=== PATIENT | female | born 1950 | race Caucasian/White ===

== ENCOUNTER 2023-07-18 10:56 | Emergency (ER) | payer OTHER, MEDICARE, SELFPAY ==
[2023-07-18] VITALS (9 sets, daily range): BP systolic 105–144; BP diastolic 55–111; PULSE 72–75; BMI 29.5
--- NOTE | 2023-07-18 11:11 | ED.GENMED ---
History of Present Illness
General
Chief Complaint: Fainting/Passed Out
Source: family and ambulance crew
Time Seen by Provider: 07/18/23 11:00
Travel History
Have you had any contact with someone who has COVID-19?: No
Do you have any symptoms of coronavirus? Fever > 100 degrees, chills, cough, shortness of breath, sore throat, loss of taste or smell, muscle aches, or headache?: No
History of Present Illness
History of Present Illness:
9-year-old female with past medical history of hypertension and GERD presenting to the emergency department via EMS for evaluation after patient had a witnessed syncopal episode by family this morning the family kitchen table approximately 30
minutes prior to arrival to the emergency department. Daughter is providing the primary history and notes that since Wednesday night patient states she had been feeling unwell and has had some vomiting Wednesday night into Wednesday. Wednesday morning and
afternoon patient seemed fine and was able to eat dinner last night without any difficulty. Patient awoke this morning and was making the family breakfast and while they were sitting eating breakfast the daughter noticed the mother's eyes are
starting to roll back into her head and the patient noted she felt like as if she were going to throw up and upon trying to get up to help the mother towards the bathroom the patient syncopized. EMS was contacted and upon their arrival patient was
awake and alert however her blood pressure was 60/30. An IV was started and patient was given IV fluids. Patient still notes feeling slightly unwell but without any specific concern upon arrival to the emergency department. Patient is denying any
chest pain, shortness of breath, fevers, known sick contacts, bowel changes or urinary symptoms.
Past History
Past History
ED Past Medical History: GERD and HTN
ED Past Surgical History: None
Social History
Tobacco: Non-smoker
Alcohol: None
Drug: None
Living: with family
Review of Systems
Review of Systems
All Other Systems: ROS reviewed and negative except as documented in HPI and ROS
Phy Exam
Physical Exam
Physical Exam:
GENERAL: Sleepy but is easily arousable to voice, in no apparent distress
EYE: clear conjunctiva b/l
HEAD: NCAT
ENT: o/p clr, dry mucous membranes
CARDIAC: Regular rate and rhythm .
LUNGS: Clear breath sounds bilaterally, no acute respiratory distress, no wheezes/rales/rhonchi
ABDOMEN: Soft, without focal tenderness, no r/g, no cvat
NEUROLOGICAL: Alert and oriented
SKIN: Warm and dry, skin intact.
MUSCULOSKELETAL: No edema, well perfused.
PSYCH: Normal and appropriate interaction.
Scores
Heart Failure Risk
Heart Failure Risk Score: Not Applicable
Heart Score for Chest Pain Patients
STEMI patient?: Not applicable
Withdrawal Assessment of Alcohol
Withdrawal Assessment Completed?: Not applicable
Course
Orders/Labs/Results
Orders:
Orders
07/18/23 11:02
Electrocardiogram (*1) Urgent
Reason for Study: Syncope
EKG- Treatment ONCE
07/18/23 11:09
CT Cervical Spine W/o Iv Contr Urgent
Comment:
Reason For Exam: fall, neck pain
CT Head W/o Iv Contrast Urgent
Comment:
Reason For Exam: fall, head injury
Orthostatic VS- Treatment ONCE
COVID-19 Antigen Urgent
Source: Nasal Swab
Complete Blood Count/With Diff Urgent
Comprehensive Metabolic Panel Urgent
Troponin I Urgent
Influenza A+B Rapid Molecular Urgent
JONEL Source: Nasal Swab
Specimen Description:
07/18/23 12:40
0.9% Sodium Chloride 1000 ml [Nss] 1,000 ml IV BOLUS
07/18/23 13:33
Orthostatic VS- Treatment ONCE
Abnormal Lab Results
07/18/23
11:09
WBC 11.6 H 10^3/uL
(4.8-10.8)
RBC 3.82 L 10^6/uL
(4.20-5.40)
Hgb 11.7 L g/dL
(12.0-16.0)
Hct 34.6 L %
(37.0-47.0)
MPV 11.0 H fL
(7.4-10.4)
Abs Immat Gran (auto) 0.1 H 10^3/uL
(0-0.05)
Absolute Neuts (auto) 8.6 H 10^3/uL
(1.4-6.5)
Absolute Monos (auto) 1.2 H 10^3/uL
(0.1-0.6)
Lymphocytes % 13.9 L %
(20.5-51.1)
Monocytes % 10.2 H %
(1.7-9.3)
Potassium 3.4 L mmol/L
(3.5-5.1)
Glucose 143 H mg/dl
(70-99)
07/18/23 11:09
07/18/23 11:09
Vital Signs
Initial and Last Documented VS:
Initial Vital Signs
Temp Pulse Resp BP Pulse Ox
98.6 F 71 19 125/61 95
07/18/23 11:02 07/18/23 11:02 07/18/23 11:02 07/18/23 11:02 07/18/23 11:02
Last Documented Vital Signs
Temp Pulse Resp BP Pulse Ox
98.6 F 78 16 131/111 97
07/18/23 11:02 07/18/23 14:30 07/18/23 14:30 07/18/23 14:00 07/18/23 14:30
MDM/Problems Addressed
Differential Diagnosis Includes:
Orthostasis, dehydration, electrolyte disturbance, infectious etiology
MDM/Problems Addressed:
72-year-old female present emergency department for evaluation after witnessed syncopal episode this morning, EMS on arrival noticed her blood pressure was 60/30. I suspect orthostasis secondary to volume depletion as patient has had some nausea
and vomiting and decreased p.o. intake over the last 2 days. Will treat with continued IV fluids. Vital signs are much improved here. Will check CT of the head and C-spine due to the reported fall today as well as headache over the last few days.
Labs ordered. Reassessment following.
*Radiology
Radiology exam reviewed: radiology read reviewed
*Pulse Oximetry
Patient hypoxic: no
*Critical Care Note
Total Time (30-74mins, 75-104mins- exclusive of procedures): Not Applicable
Patient Management
Escalation/DeEscalation of care consider admission/obs:
Patient's workup is largely unremarkable. She does have a mild leukocytosis which could be reactive from the vomiting she had versus a viral infection. Patient's symptoms are fully resolved. Orthostatic vital signs without any significant
abnormality and patient feels well to be discharged home. Family will ensure close follow-up with primary care provider. Patient is otherwise stable for discharge home.
ED Attending Note
-
Portions of this chart may have been created with voice recognition software.� Occasional wrong word or��sound alike� substitutions may have occurred due to the inherent limitations of voice recognition software.
Discharge Plan
Departure
Patient Disposition: Home (Routine Discharge)
Date of Disposition: 07/18/23
Time of Disposition: 14:40
Patient with high blood pressure during this ER visit?: Yes
Discharge Problem:
Orthostasis
Instructions: Syncope (Fainting) (DC)
Referrals:
Augusta Young, [Family Provider] -
Interventions
Interventions:
*Risk Screen - Suicide Last Done: 07/18/23 11:03
*General Assessment Last Done: 07/18/23 11:03
*Neglect/Abuse Screening Last Done: 07/18/23 11:03
ED- Fall Risk Assessment Last Done: 07/18/23 11:07
*ED COVID-19 Vaccine History Last Done: 07/18/23 14:24
*Nursing Disposition Last Done: 07/18/23 14:53
ED- Cardiac Assessment Last Done: 07/18/23 11:07
ED- Neurological Assessment Last Done: 07/18/23 11:07
Discharge Date and Time
Discharge Date/Time: 07/18/23 14:53
[2023-07-18 11:21] LABS: % Basophils 0.3 % (0-2); % Eosinophils 0.5 % (0-6); % Immature Granulocytes 0.4 % (0-0.5); % Lymphocytes 13.9 % (20.5-51.1); % Monocytes 10.2 % (1.7-9.3); % Neutrophils 74.7 % (42.2-75.2); Absolute Eosinophils 0.1 10^3/uL (0-0.7); Absolute Immature Granulocytes 0.1 10^3/uL (0-0.05); Absolute Lymphocytes 1.6 10^3/uL (1.2-3.4); Absolute Monocytes 1.2 10^3/uL (0.1-0.6); Absolute Neutrophils 8.6 10^3/uL (1.4-6.5); Hematocrit 34.6 % (37.0-47.0); Hemoglobin 11.7 g/dL (12.0-16.0); Mean Corp Hgb Conc. 33.8 g/dL (33.0-37.0); Mean Corpuscular Hgb 30.6 pg (27.0-31.0); Mean Corpuscular Volume 90.6 fL (81.0-99.0); Nucleated Red Blood Cells % 0 %; Platelet Count 192 10^3/uL (130-400); Red Blood Cell Count 3.82 10^6/uL (4.20-5.40); Red Cell Dist. Width 12.8 % (11.5-14.5); White Blood Cell Count 11.6 10^3/uL (4.8-10.8)
[2023-07-18 11:30] LABS: COVID-19 Antigen Negative (Negative)
[2023-07-18 11:32] LABS: ALT (SGPT) 20 U/L (0-35); AST (SGOT) 25 U/L (14-36); Albumin 3.9 g/dl (3.5-5.0); Alkaline Phosphatase 60 U/L (38-126); Blood Urea Nitrogen 17 mg/dl (7-17); Calcium 8.8 mg/dl (8.4-10.2); Carbon Dioxide 22 mmol/L (22-30); Chloride 104 mmol/L (98-107); Estimated Creatinine Clearance 67 ml/min; Glucose 143 mg/dl (70-99); Potassium 3.4 mmol/L (3.5-5.1); Sodium 138 mmol/L (135-145); Total Bilirubin 0.7 mg/dl (0.2-1.3); Total Protein 7.1 g/dl (6.3-8.2); eGFR > 60.00
[2023-07-18 11:44] LABS: Troponin I < 0.012 ng/ml
[2023-07-18] MEDS: NSS 1000 IV (12:58)
== END 2023-07-18 14:53 | disposition home or self-care (01) ==
LOC: EMR 10:56
PROVIDERS: Physician Assistant Medical; EMERGENCY PHYSICIAN Student in an Organized Health Care Education/Training Program; FAMILY PHYSICIAN Family Medicine
DX: I95.1 Orthostatic hypotension (principal); K21.9 Gastro-esophageal reflux disease without esophagitis
CPT/HCPCS: 99285; 96360; 70450; 72125; 80053; 84484; 85025; 87502; 87811; 93005

== ENCOUNTER 2024-02-01 13:42 | Inpatient (IN) | payer MEDICARE, OTHER, SELFPAY ==
[2024-02-01] VITALS (7 sets, daily range): BP systolic 108–162; BP diastolic 52–89; BMI 32.3
[2024-02-01 08:34] LABS: Glucose - Point of Care 102 mg/dl (70-99)
[2024-02-01 08:41] LABS: % Basophils 0.7 % (0-2); % Eosinophils 2.6 % (0-6); % Immature Granulocytes 0.3 % (0-0.5); % Lymphocytes 43.9 % (20.5-51.1); % Monocytes 10.9 % (1.7-9.3); % Neutrophils 41.6 % (42.2-75.2); Absolute Basophils 0.1 10^3/uL (0-0.2); Absolute Eosinophils 0.2 10^3/uL (0-0.7); Absolute Monocytes 0.8 10^3/uL (0.1-0.6); Absolute Neutrophils 2.8 10^3/uL (1.4-6.5); Hematocrit 33.3 % (37.0-47.0); Hemoglobin 11.3 g/dL (12.0-16.0); Mean Corp Hgb Conc. 33.9 g/dL (33.0-37.0); Mean Corpuscular Hgb 30.5 pg (27.0-31.0); Mean Platelet Volume 10.9 fL (7.4-10.4); Nucleated Red Blood Cells % 0 %; Platelet Count 228 10^3/uL (130-400); Red Cell Dist. Width 12.9 % (11.5-14.5); White Blood Cell Count 6.9 10^3/uL (4.8-10.8)
--- NOTE | 2024-02-01 08:47 | ED.CVA ---
History of Present Illness
General
Chief Complaint: CVA/TIA Symptoms
Source: patient, family and ambulance crew
Exam Limitations: none
Time Seen by Provider: 02/01/24 08:33
Nursing documentation reviewed up to this point in time: agreed with
Onset of Stroke Symptoms
Onset of symptoms known: Yes
Date of onset of symptoms: 02/01/24
Time of onset of symptoms: 07:00
Time pt last seen normal is known: Yes
Date last time pt seen normal: 01/31/24
History of Present Illness
History of Present Illness:
73-year-old female presents to the emergency department complaining of slurred speech and left-sided weakness that began at 7 am. She was last seen normal at 10:30 PM last night.
Past History
Past History
ED Past Medical History: GERD and HTN
ED Past Surgical History: None
Social History
Tobacco: Non-smoker
Alcohol: None
Drug: None
Living: with family
Scores
NIH Stroke Score
Level of Consciousness: 0 - Alert
LOC Commands: 0-Performs both correctly
Best Horizontal Gaze: 0-Normal
Visual Rowe: 0=Normal, no visual loss
Facial Palsy: 0=Normal, symmetrical
Motor - Right Arm: 0=No drift 10 seconds
Motor - Left Arm: 1=Drift < 10 seconds
Motor - Right Le-No drift 5 seconds
Motor - Left Le-Partial vs. gravity
Limb Ataxia: 0-Absent
Sensation: 0-Normal
Best Language: 0-No aphasia
Extinction and Inattention: 0-No abnormality
Course
Orders/Labs/Results
Orders:
Orders
02/01/24 08:31
Electrocardiogram (*1) Urgent
Reason for Study: Other
Other Reason for Exam: Possible Stroke
Bedside Glucose- Treatment ONCE
Cardiac Monitoring- Treatment ONCE
EKG- Treatment ONCE
IV Insert/Care/Rem.- Treatment PRN
Vital Signs As Directed
Frequency: Other
Weight As Directed
Frequency: Once
Comment: ZERO STRETCHER SCALE FOR ACCURATE WEIGHT
O2 Therapy [RESP] Urgent
Titrate/Wean O2 to maintain O2 sat greater than (%): 93
Special Instructions: MAINTAIN CONTINUOUS O2 SATS > OR = 93%
02/01/24 08:33
CT Head W/o Cont STROKE ALERT Urgent
Comment:
Reason For Exam: left side weakness
CT Head/Neck Ang STROKE ALERT Urgent
Comment:
Reason For Exam: left side weakness
02/01/24 08:34
CT Brain Perfusion Urgent
Comment:
Reason For Exam: left side weakness
Complete Blood Count/With Diff Urgent
Comprehensive Metabolic Panel Urgent
PTT Urgent
Prothrombin Time Urgent
Troponin I Urgent
Abnormal Lab Results
02/01/24 02/01/24
08:32 08:34
RBC 3.70 L 10^6/uL
(4.20-5.40)
Hgb 11.3 L g/dL
(12.0-16.0)
Hct 33.3 L %
(37.0-47.0)
MPV 10.9 H fL
(7.4-10.4)
Absolute Monos (auto) 0.8 H 10^3/uL
(0.1-0.6)
Neutrophils % 41.6 L %
(42.2-75.2)
Monocytes % 10.9 H %
(1.7-9.3)
POC Glucose 102 H mg/dl
(70-99)
02/01/24 08:34
ED Attending Note
-
Portions of this chart may have been created with voice recognition software.� Occasional wrong word or��sound alike� substitutions may have occurred due to the inherent limitations of voice recognition software.
Discharge Plan
Departure
Discharge Problem:
Acute cerebrovascular accident (CVA)
Prescriptions:
No Action
losartan 50 mg Tablet
50 mg PO BID
atorvastatin [Lipitor] 10 mg Tablet
10 mg PO DAILY
alendronate [Fosamax] 70 mg Tablet
70 mg PO QWEEK
furosemide [Lasix] 20 mg Tablet
20 mg PO DAILY
diclofenac sodium [Voltaren] 1 % Gel
0 g TOPICAL QIDPRN PRN (Reason: mild pain)
cholecalciferol (vitamin D3) [Vitamin D3] 125 mcg (5,000 unit) Tablet
125 mcg PO DAILY
diphenhydramine HCl [Sleep Aid (diphenhydramine)] 25 mg Capsule
25 mg PO HSPRN PRN (Reason: sleep)
omega 8-xzl-nzp-fish oil [Fish Oil] 1,000 (120-180) mg Capsule
1 cap PO DAILY
turmeric 400 mg Capsule
400 mg PO DAILY
Discharge Date and Time
Print Language: PASHTO
[2024-02-01 08:53] LABS: ALT (SGPT) 30 U/L (0-35); AST (SGOT) 27 U/L (14-36); Albumin 4.8 g/dl (3.5-5.0); Alkaline Phosphatase 60 U/L (38-126); Blood Urea Nitrogen 29 mg/dl (7-17); Calcium 9.8 mg/dl (8.4-10.2); Carbon Dioxide 25 mmol/L (22-30); Chloride 106 mmol/L (98-107); Glucose 103 mg/dl (70-99); Potassium 4.3 mmol/L (3.5-5.1); Sodium 144 mmol/L (135-145); Total Bilirubin 0.5 mg/dl (0.2-1.3); Total Protein 7.3 g/dl (6.3-8.2); eGFR > 60.00
[2024-02-01 08:58] LABS: INR 1.09
[2024-02-01 08:59] LABS: APTT 28.5 Sec (23.4-35.0)
[2024-02-01 09:05] LABS: Troponin I < 0.012 ng/ml
--- NOTE | 2024-02-01 09:49 | CON.NEURO4 ---
Consultation - Neurology 4
-
CONSULTING PHYSICIAN: Rohan
REFERRING PHYSICIAN: Joe
DICTATED BY: Rohan
DATE/TIME OF REQUEST: 822 am 02/01/24
DATE/TIME OF CONSULTATION: 830am 02/01/24
Reason for Consultation: stroke alert
History of Present Illness:
73-year-old female presents to the emergency department with aphasia, dysarthria and left-sided weakness that she noticed at 7 am. She was last seen normal at 10:30 PM last night before going to bed. Told her daughter that she experienced 'L sided
numbness, tingling' and 'her speech was slow, didn't make sense, she told me she was having a stroke, voice was mumbled.' She was trying to hold on to cordon while walking. Her 'face looked off' as well.
In the ER she was noted to have severe L hip pain. Aphasia and LUE drift resolved. Dysarthria persisted. Speech was still slow per her daughter.
Past Medical History: GERD and HTN
Past Surgical History: None
Social History
Tobacco: Non-smoker
Alcohol: None
Drug: None
Living: with who has AD
Home Medications
�Medication �Instructions �Recorded
alendronate 70 mg tablet (Fosamax) 70 mg PO QWEEK osteoporosis 02/01/24
aspirin 81 mg tablet,delayed 81 mg PO DAILYPRN PRN stroke like 02/01/24
release symptoms
atorvastatin 10 mg tablet (Lipitor) 10 mg PO DAILY high cholesterol 02/01/24
cholecalciferol (vitamin D3) 125 125 mcg PO DAILY supplement 02/01/24
mcg (5,000 unit) tablet (Vitamin
D3)
diclofenac sodium 1 % topical gel 0 g topical QIDPRN PRN mild pain 02/01/24
diphenhydramine HCl 25 mg capsule 25 mg PO HSPRN PRN sleep 02/01/24
(Sleep Aid (diphenhydramine))
furosemide 20 mg tablet (Lasix) 20 mg PO DAILY Fluid 02/01/24
Retention/Swelling
losartan 50 mg tablet 50 mg PO BID blood pressure 02/01/24
omega 1-jjv-pqs-fish oil 1,000 mg 1 cap PO DAILY supplement 02/01/24
(120 mg-180 mg) capsule (Fish Oil)
turmeric 400 mg capsule 400 mg PO DAILY supplement 02/01/24
Vital Signs
Pulse Resp BP Pulse Ox
73 24 162/71 94
02/01/24 09:30 02/01/24 09:30 02/01/24 08:34 02/01/24 09:30
Lab Results
02/01/24 08:34
02/01/24 08:34
PT 14.0 Sec (11.4-14.6) 02/01/24 08:34
INR 1.09 02/01/24 08:34
APTT 28.5 Sec (23.4-35.0) 02/01/24 08:34
Sodium 144 mmol/L (135-145) 02/01/24 08:34
Potassium 4.3 mmol/L (3.5-5.1) 02/01/24 08:34
BUN 29 mg/dl (7-17) H 02/01/24 08:34
Glucose 103 mg/dl (70-99) H 02/01/24 08:34
Calcium 9.8 mg/dl (8.4-10.2) 02/01/24 08:34
Review of Symptoms:
Patient denies any fever, headache, chest pain, shortness of breath, GI or symptoms.
Physical Exam:
The patient is afebrile, heart sounds S1 and S2 are regular and chest is clear to auscultation bilaterally.
Neurologic Examination:
The patient is awake, alert and oriented x 3. She is able to follow commands and answer questions appropriately in her [place] language in conversation with her daughter; daughter reports some mild dysarthria; no aphasia; able to read sentences in
Thai. Does not speak [place]. On cranial nerve assessment, pupils are 3 mm bilateral, round and reactive to light and accommodation. Visual rowe are full. Extraocular movements are intact. Facial sensations are intact and bilaterally
symmetrical, there is no facial asymmetry. Hearing is intact bilaterally to normal conversation volume. Tongue palate and uvula are midline. Sternocleidomastoid strengths are full bilaterally. Motor strengths: drift in LUE (later resolved on repeat
exam per Dr. Diaz); LLE limited by severe hip pain--at least 3/5. R side full strength. Deep tendon reflexes are 1+ bilateral upper and lower extremities and Babinski is absent bilaterally. Sensations of touch, temperature are intact and
bilaterally symmetrical. There was no extinction noted on double simultaneous stimulation. Coordination is intact by finger to nose bilaterally.
Neuro Imaging:
HCT: no acute findings
CTP: negative per my read; await official read from radiology
CTA head/neck:
IMPRESSION: No significant proximal intracranial arterial abnormality.
No demonstrable internal carotid artery stenosis.
No findings to suggest internal carotid artery or vertebral artery dissection bilaterally.
Impression:
DOUG PILLAI is a 73 year old F who has presented to the hospital with L sided weakness with dysarthria and aphasia. Aphasia and LUE drift also resolved. Still had LLE weakness (but significant effect from hip pain likely playing a role) and
dysarthria.
Differentials for the patient's presentation include:
1. small R hemispheric stroke no visible on HCT or CTP
2. toxic-metabolic encephalopathy (although does not account for LUE drift) of unclear etiology; in a lot of pain, currently requiring oxygen
Patient has the following risk factors for their symptoms: age, htn
IV Tenecteplase/IAT candidacy: not a TNK candidate given out of traditional window, symptoms improving and when reassessed NIHSS was down to a 3 with points given for mild dysarthria (1) and LLE weakness (2), although how much of the latter was due
to pain is unclear
No LVO for IAT.
Recommendations:
-check MRI brain without contrast to evaluate for stroke
-CTA results reviewed
-permissive htn for first 24 hours, treat >220/110
-give extra ASA for a total of 325; given plavix 75mg as well; start ASA 81mg daily and Plavix 75mg daily tomorrow and continues x 21 days, then d/c Plavix.
- Check hemoglobin A1C. Goal is normoglycemia.
- Please start the patient on atorvastatin 80 mg by mouth daily at bedtime. Check LDL. Goal LDL after stroke is <70.
- Check an echocardiogram.
-PT/OT/ST evaluations
- DVT prophylaxis
-continue neurochecks
-workup for hypoxia, L hip pain per primary team
Critical care time 70 mins
Discussed patient care with: patient, patient's daughter, Dr. Diaz, radiology
NIH Stroke Scale
NIH Stroke Score
Date of Subsequent NIH Scale: 02/01/24
Time of Subsequent NIH Scale: 08:30
Level of Consciousness: 0 - Alert
LOC Questions: 0-Answers both correctly
LOC Commands: 0-Performs both correctly
Best Horizontal Gaze: 0-Normal
Visual Rowe: 0=Normal, no visual loss
Facial Palsy: 0=Normal, symmetrical
Motor - Right Arm: 0=No drift 10 seconds
Motor - Left Arm: 1=Drift < 10 seconds
Motor - Right Le-No drift 5 seconds
Motor - Left Le-Partial vs. gravity
Limb Ataxia: 0-Absent
Sensation: 0-Normal
Best Language: 0-No aphasia
Dysarthria: 1-Mild slurring
Extinction and Inattention: 0-No abnormality
Total Score:: 4
[2024-02-01] MEDS: ASPIRIN 325 MG PO (10:32)
[2024-02-01] MEDS: PLAVIX 75 MG PO (10:32)
[2024-02-01 14:17] LABS: HDL Cholesterol 60 mg/dl; LDL Cholesterol, Calculated 66 mg/dl; Total Cholesterol 146 mg/dl (50-199); Triglyceride 104 mg/dl (10-149); Very Low Density Lipoprotein 20 mg/dl (0-30)
[2024-02-01] MEDS: LIPITOR 80 MG PO (17:56)
[2024-02-01 19:13] LABS: ALT (SGPT) 29 U/L (0-35); AST (SGOT) 26 U/L (14-36); Albumin 4.6 g/dl (3.5-5.0); Alkaline Phosphatase 65 U/L (38-126); Blood Urea Nitrogen 19 mg/dl (7-17); Calcium 9.7 mg/dl (8.4-10.2); Carbon Dioxide 23 mmol/L (22-30); Chloride 106 mmol/L (98-107); Estimated Creatinine Clearance 72 ml/min; Glucose 97 mg/dl (70-99); Potassium 4.1 mmol/L (3.5-5.1); Sodium 143 mmol/L (135-145); Total Bilirubin 0.5 mg/dl (0.2-1.3); Total Protein 7.4 g/dl (6.3-8.2); eGFR > 60.00
--- NOTE | 2024-02-01 19:49 | HPS.HSE ---
Addendum entered and electronically signed by Nusrat Garcia MD 02/01/24 21:18:
I personally performed a history and physical exam of the patient and discussed management with the resident. I reviewed the resident's note and agree with the documented findings and plan of care HPI/CC.
GENERAL: well developed, well nourished, female in no apparent distress--speaks Czech (daughter translating)--looks 'pained' frowning
HEENT: NC/AT--subtle facial droop
HEART: regular rate and rhythm, +S1, +S2
LUNGS : clear to auscultation bilaterally
ABDOM: soft, nontender, nondistended, + bowel sounds
EXT: no cyanosis, clubbing, or edema--left leg shorter than right
NEUROLOGIC: weakness left arm and leg, subtle facial droop
TIA vs CVA--presenting as weakness/dysarthria--head CT, head and neck CTA negative--consult neuro--check MRI brain, lipids, PT/OT/speech, ECHO--cont asa/plavix for 21 days followed likely by plavix as she had been on ASA MOVER--high intensity
statin--IF MRI positive, would consult PM&R for rehab eval
Essential Hypertension--allow permissive HTN--cont meds with hold parameters
Hyperlipidemia-- check lipids, cont statin
DVT proph
code status--limited DNR
Original Note:
Family Physician
-
Family Physician: NOT KNOW UNKNOWN - PT DOES
Chief Complaint
-
weakness in the left arm, not comprehensible when talking to daughter
History of Present Illness
A 73 year old female with a past medical history of GERD, rheumatoid arthritis, HTN, HLD, and osteoprosis comes to the ED with weakness of the left arm and dysarthria. She does not speak Maori and her daughter is bedside who is translating. She
was going to the bathroom in the morning when all of a sudden she started feeling left arm weakness. She was calling out to her grandson and could not form the words to call out his name. She then took her blood pressure and found that it was high.
She took a losartan but it did not help the weakness. Her daughter came home to find her clinging to the couch trying to pull herself up. The daughter was not able to understand what she was trying to say. and noticed she kept complaining about her
left arm and leg. she then called 911. She was also advised to give the patient aspirin which she did. Patient was then transported to the hospital in ambulance and admitted. She reports no vomiting, no nausea, no chest pain, no dizziness, no
headache.
Medical History
Past Medical History
Past Medical History: Reports GERD, HTN and Hypercholesterolemia
Additional Past Medical History:
Rheumatoid arthritis
osteoporosis
Past Surgical History: Reports None
Social History
Tobacco: Non-smoker
Alcohol: None
Drug: None
Personal:
Living: With Family
Employment: Not Employed
Family History
Family History: Not pertinent
Allergies / Home Medications
Allergies reflects when Allergies were last updated in [employer].
Home Medications with original date entered in [employer]
Allergy/Medication List:
Allergies
Allergy/AdvReac Type Severity Reaction Status Date / Time
No Known Allergies Allergy Unverified 07/18/23 11:03
Home Medications
acetaminophen 500 mg tablet 1,000 mg PO Q6H PRN joint pain 02/01/24
alendronate 70 mg tablet (Fosamax) 70 mg PO QWEEK osteoporosis 02/01/24
atorvastatin 10 mg tablet (Lipitor) 10 mg PO DAILY high cholesterol 02/01/24
cholecalciferol (vitamin D3) 125 mcg (5,000 unit) tablet (Vitamin D3) 125 mcg PO DAILY supplement 02/01/24
diclofenac sodium 1 % topical gel 0 g topical QIDPRN PRN mild pain 02/01/24
diphenhydramine HCl 25 mg capsule (Sleep Aid (diphenhydramine)) 25 mg PO HSPRN PRN sleep 02/01/24
furosemide 20 mg tablet (Lasix) 20 mg PO DAILY Fluid Retention/Swelling 02/01/24
ibuprofen 600 mg tablet 600 mg PO Q6H PRN joint pain 02/01/24
losartan 50 mg tablet 50 mg PO BID blood pressure 02/01/24
omega 8-pmh-scl-fish oil 1,000 mg (120 mg-180 mg) capsule (Fish Oil) 1 cap PO DAILY supplement 02/01/24
omeprazole 20 mg capsule,delayed release 20 mg PO BID 02/01/24
turmeric 400 mg capsule 400 mg PO DAILY supplement 02/01/24
Review of Systems
-
History Source: Patient
Neurological: Reports Weakness (in the left arm and leg )
Physical Exam
Vital Signs
Vital Signs
Temp Pulse Resp BP Pulse Ox
97.9 F 58 18 135/69 95
02/01/24 15:35 02/01/24 15:35 02/01/24 15:35 02/01/24 15:35 02/01/24 15:35
Physical Exam
General: Well Developed and Well Nourished
HEENT: NormoCephalic and Anicteric
Respiratory: Clear
Cardiac: Regular Rhythm
GI: Soft, Non Tender and Non Distended
Musculoskeletal: No Clubbing and No Cyanosis
Skin: Warm and Dry
Neuro: Awake, Alert and Oriented
Psych: Confused
Laboratory Results
-
02/01/24 08:34
02/01/24 18:23
Laboratory Results
PT 14.0 Sec (11.4-14.6) 02/01/24 08:34
INR 1.09 02/01/24 08:34
APTT 28.5 Sec (23.4-35.0) 02/01/24 08:34
Total Bilirubin 0.5 mg/dl (0.2-1.3) 02/01/24 18:23
AST 26 U/L (14-36) 02/01/24 18:23
ALT 29 U/L (0-35) 02/01/24 18:23
Alkaline Phosphatase 65 U/L (38-126) 02/01/24 18:23
Troponin I < 0.012 ng/ml 02/01/24 08:34
Data Reviewed
-
Lab Data: Labs Reviewed by me and Discussed with Physician
Impression/Plan
-
IMPRESSION:
TIA vs CVA
Essential Hypertension
Hyperlipidemia
PLAN:
1. TIA vs CVA
- Consulted neurology (01/31)
- Aspirin/ Plavix ordered
- MRI ordered (01/31)
- MRA ordered (01/31)
- PT/OT ordered
- Speech therapy consulted
- Bedside swallowing evaluation- passed so cholesterol lowering diet ordered
- Lipid panel ordered (01/31)
- Echocardiogram ordered (01/31)
2. Essential hypertension:
- 162/71 (01/30)
- For now continue on current HTN medication regime, allow permissive HTN
3. Hyperlipidemia:
- Currently switched her atorvastatin to 80 mg from 10 mg
[2024-02-01] MEDS: COZAAR 50 MG PO (19:52)
[2024-02-01] MEDS: PROTONIX 20 MG PO (20:36)
[2024-02-02 03:30] VITALS: BP 104/56
[2024-02-02 07:36] VITALS: BP 139/66
[2024-02-02 07:51] LABS: INR 1.11; PT 14.1 Sec (11.4-14.6)
[2024-02-02 08:03] LABS: Hematocrit 31.4 % (37.0-47.0); Hemoglobin 10.8 g/dL (12.0-16.0); Mean Corp Hgb Conc. 34.4 g/dL (33.0-37.0); Mean Corpuscular Hgb 31.7 pg (27.0-31.0); Mean Corpuscular Volume 92.1 fL (81.0-99.0); Mean Platelet Volume 11.4 fL (7.4-10.4); Platelet Count 212 10^3/uL (130-400); Red Blood Cell Count 3.41 10^6/uL (4.20-5.40); Red Cell Dist. Width 12.9 % (11.5-14.5); White Blood Cell Count 6.3 10^3/uL (4.8-10.8)
[2024-02-02] MEDS: COZAAR 50 MG PO (09:17)
[2024-02-02] MEDS: ASPIR LOW (ENTERIC COATED) 81 MG PO (09:18)
[2024-02-02] MEDS: PROTONIX 20 MG PO (09:18)
[2024-02-02] MEDS: VITAMIN D3 (cholecalciferol) 125 MCG PO (09:19)
[2024-02-02] MEDS: PLAVIX 75 MG PO (09:19)
[2024-02-02 09:27] LABS: Glycohemoglobin (HgbA1c) 5.5 % (4.0-5.6)
[2024-02-02 09:34] VITALS: BP 139/66; PULSE 57; O2SAT 97
[2024-02-02 11:17] VITALS: BP 131/70
--- NOTE | 2024-02-02 12:30 | PTOTSP ---
ANSWERING SERVICE AGENT Evaluation
Speech/language is at baseline per discussion with patient's caregiver/daughter, without significant signs of dysarthria or aphasia. Changes to short term delayed recall noted which was present prior to admission per daughter. Patient is fully
assisted/supervised with higher level cognitive tasks at baseline per daughter. Patient would benefit from a comprehensive outpatient cognitive linguistic evaluation with a bilingual ANSWERING SERVICE AGENT and/or with use of an [place] fur storage clerk as
able/appropriate.
[2024-02-02] MEDS: DICLOFENAC 1% TOPICAL GEL 100 GRAM TOPICAL (13:19)
--- NOTE | 2024-02-02 14:48 | CM ---
Patient seen bedside.
IA completed with daughter in the room.
Patient lives with daughters family in a 2 story home, with 1st floor set up.
Patient ambulates with RW when outside.
Patient does not drive.
Patient does not have VN.
PT/OT recommending home care, patient and daughter declined.
Daughter is caregiver and assists.
IMM form completed.
Daughter will transport.
PCP: Dr Anastasiya Quiroz
Pharmacy: [facility].
Plan: home no needs anticipated.
--- NOTE | 2024-02-02 14:56 | W.PN.NEURO.1 ---
Today's Communication / Plan
-
ok for d/c
continue dapt, statin
f/u in office
Neuro Assessment/Plan
Assessment
DOUG PILLAI is a 73 year old F who has presented to the hospital with L sided weakness with dysarthria and aphasia. Aphasia and LUE drift also resolved. Still had LLE weakness (but significant effect from hip pain likely playing a role) and
dysarthria.
MRI brain confirmed stroke:
There are 2 small foci of mild to moderate increased diffusion-weighted signal and subtle increased ADC signal in the right hemisphere, one more medially at the frontoparietal junction, and a second more laterally within the anterior margin of the
postcentral gyrus. These are slightly less intense than sometimes seen, but are still suspicious for small foci of acute to subacute infarction.
Mild to moderate atrophy. Mild to moderate T2 and FLAIR white matter hyperintensities, commonly seen with aging and usually attributed to small vessel ischemic disease.
Patient has the following risk factors for their symptoms: age, htn
IV Tenecteplase/IAT candidacy: not a TNK candidate given out of traditional window, symptoms improving and when reassessed NIHSS was down to a 3 with points given for mild dysarthria (1) and LLE weakness (2), although how much of the latter was due
to pain is unclear
No LVO for IAT.
Plan
Recommendations:
-CTA results reviewed, reviewed mri brain
-bp goal normotension
-continue ASA 81mg daily and Plavix 75mg daily x 21 days, then d/c Plavix. continue asa indefinitely; reviewed with dtr.
- Hemoglobin A1C is 5.5. Goal is normoglycemia.
- Please start the patient on atorvastatin 80 mg by mouth daily at bedtime. LDL is 66. Goal LDL after stroke is <70.
-echo--no cse
-PT/OT/ST evaluations
- DVT prophylaxis
-continue neurochecks
ok for d/c from my standpt
needs op f/u with neurology in 1-2 mos
Subjective/Objective
Subjective Data
Date of Service: February 02, 2024
speech improved, even compared to last night per daughter
facial weakness also improved
Objective Data
Vital Signs
Temp Pulse Resp BP Pulse Ox
98.3 F 64 17 131/70 95
02/02/24 11:17 02/02/24 11:17 02/02/24 11:17 02/02/24 11:17 02/02/24 11:17
Lab Results
02/02/24 07:12
02/01/24 18:23
PT 14.1 Sec (11.4-14.6) 02/02/24 07:12
INR 1.11 02/02/24 07:12
APTT 28.5 Sec (23.4-35.0) 02/01/24 08:34
Sodium 143 mmol/L (135-145) 02/01/24 18:23
Potassium 4.1 mmol/L (3.5-5.1) 02/01/24 18:23
BUN 19 mg/dl (7-17) H 02/01/24 18:23
Glucose 97 mg/dl (70-99) 02/01/24 18:23
Calcium 9.7 mg/dl (8.4-10.2) 02/01/24 18:23
LDL Cholesterol, Calc Cancelled 02/01/24 13:21
Patient Allergies
No Known Allergies Allergy (Unverified 07/18/23 11:03)
Physical Exam
-
The patient is awake, alert and oriented x 3. She is able to follow commands and answer questions appropriately in her tununak language in conversation with her daughter; daughter reports significantly improved dysarthria; no aphasia; able to read
sentences in Azeri. Does not speak Amharic. On cranial nerve assessment, pupils are 3 mm bilateral, round and reactive to light and accommodation. Visual bucio are full. Extraocular movements are intact. Facial sensations are intact and
bilaterally symmetrical, there is no facial asymmetry. Hearing is intact bilaterally to normal conversation volume. Tongue palate and uvula are midline. Sternocleidomastoid strengths are full bilaterally.
Motor strengths: LUE full today; LLE limited by severe hip pain--at least 3/5. R side full strength. Deep tendon reflexes are 1+ bilateral upper and lower extremities and Babinski is absent bilaterally. Sensations of touch, temperature are intact
and bilaterally symmetrical. There was no extinction noted on double simultaneous stimulation. Coordination is intact by finger to nose bilaterally.
[2024-02-02 15:22] VITALS: BP 108/64
--- NOTE | 2024-02-02 16:17 | W.PN.HOSP.TC ---
Addendum entered and electronically signed by Nusrat Garcia MD 02/02/24 19:27:
I saw and evaluated the patient independently. I reviewed the resident�s note and agree with findings and plan as documented by Dr. Munoz.
GENERAL: well developed, well nourished, female in no apparent distress--speaks Polish (daughter translating)--looks much happier
HEENT: NC/AT--subtle facial droop
HEART: regular rate and rhythm, +S1, +S2
LUNGS : clear to auscultation bilaterally
ABDOM: soft, nontender, nondistended, + bowel sounds
EXT: no cyanosis, clubbing, or edema--left leg shorter than right
NEUROLOGIC: improved
TIA vs CVA--presenting as weakness/dysarthria--head CT, head and neck CTA negative-- MRI brain with 2 small areas of foci compatible with acute CVA, lipids at goal LDL, PT/OT/speech, ECHO without evidence for embolic strokes--cont asa/plavix for 21
days followed likely by plavix thereafter as she had been on ASA PIN INSERTER--cont high intensity statin
Essential Hypertension--allow permissive HTN--cont meds
Hyperlipidemia-- check lipids, cont statin
DVT proph
code status--limited DNR
ok for d/c
Original Note:
Today's Communication/Plan
-
discharge patient today
ask her to f/u with primary care and neurology outpatient
Assessment / Plan
Assessment / Plan
Preparing patient for discharge today
take aspirin/Plavix 21 days
follow up with primary care in 1 week
follow up with neurology outpatient in 4 weeks
1. CVA:
- MRA ordered (01/31)
- PT/OT ordered
- Speech therapy consulted
- Bedside swallowing evaluation- passed so cholesterol lowering diet ordered
- Lipid panel (02/01)- Triglycerides- 104, total cholesterol- 146, LDL cholesterol- 66, HDL- 60
- Echocardiogram ordered (02/01)- normal
- MRI brain- confirmed stroke
- Neurology (02/01)- consulted
- Continue aspirin/plavix for 21 days
2. Essential hypertension:
- 108/64 (02/01)
- For now continue on current HTN medication regime
3. Hyperlipidemia:
- Continue her on the atorvastatin 80 mg
Anticipated Discharge: Today
Subjective/Interval History
-
Date of Service: February 02, 2024
Pt has no overnight complaints. Claims that she still feels a little weak in the left arm but has almost returned to baseline. She feels much better and speech has almost returned to baseline.
Objective Data
-
Labs:
Laboratory Results
02/02/24
07:12
WBC 6.3
Hgb 10.8 L
Hct 31.4 L
Plt Count 212
PT 14.1
INR 1.11
Vital Signs:
Vital Signs
Temp Pulse Resp BP Pulse Ox
98.0 F 64 14 108/64 95
02/02/24 15:22 02/02/24 15:22 02/02/24 15:22 02/02/24 15:22 02/02/24 15:22
Review of Systems
-
History Source: Patient
Neuro: Reports Weakness (slight weakness in the left arm )
Physical Exam
-
General: Well Developed and Well Nourished
HEENT: Normocephalic and Atraumatic
Respiratory: Clear to Auscultation
Cardiac: S1/S2
GI: Soft, Nontender and Nondistended
Skin: Warm and Dry
Neuro: Awake, Alert, Oriented and AO x 3
Psych: Calm
Data Reviewed
-
Labs: Labs Reviewed by me and Discussed with Physician
[2024-02-02] MEDS: LIPITOR 80 MG PO (17:07)
--- NOTE | 2024-02-02 19:03 | W.DCSUMMARY ---
Addendum entered and electronically signed by Nusrat Garcia MD 02/02/24 19:40:
Read, reviewed, and agree. See same day progress note for additional details. Time spent coordinating care, DC planning, review of DC plan of care with resident, transition of care, review of records in EMR, med rec, consults, notes, d/w
consultants, nursing, family, and CM.
Since patient had stroke on aspirin therapy (was on aspirin prior to admission), after 21 days of aspirin and Plavix; will continue Plavix thereafter. Patient should follow-up with neurology in 4 weeks along with primary care physician. He has
been cleared for discharge home with physical therapy recommending home health. Daughter declined.
Original Note:
Discharge Summary
Discharge Data
Date of Admission: 02/01/24
Date of Discharge: 02/02/24
-
Pending Results: No
Hospital Course
On 01/31/2027 A 73 year old female with a past medical history of GERD, rheumatoid arthritis, HTN, HLD, and osteoporosis came to the ED with the complaint of left sided arm and leg weakness and dysarthria. EKG was negative. CT scan of the head and
brain were negative for any intracranial abnormalities. Her physical exam showed dysarthria, reduced strength (3/5) of the upper and lower left extremities. Patient was then admitted and stroke work up was done. She was started on aspirin/plavix,
atorvastatin 80 mg from Atorvastatin 10 mg, MRI was ordered, PT/OT was consulted, speech therapy was consulted, bedside evaluation was done which was negative, and echo was ordered. on 02/01 patients brain MRI confirmed the presences of 2 small
strokes. Her echocardiogram was negative for any structural defects. Her lipid panel negative for any abnormalities. PT/OT recommended home health. Neurology states that person is not a suitable candidate for IV tenecteplase/ IAT/TNK because of her
age and HTN. Recommend to take aspirin/ plavix for 21 days and then follow up with primary care doctor in 1 week and neurology outpatient in 4 weeks.
Pt was also admitted with essential hypertension of 162/71. On discharge recommended to continue her current medication dose of Losartan 50mg and follow up with PCP for blood pressure management.
Her statin dose is increased to 80 mg from 10 mg and she is recommended to continue that current dose due to her risk factors.
Discharge Plan
-
Patient Disposition: Home (Routine Discharge)
Discharge Diagnosis/Procedures: CVA, Essential hypertension, Hyperlipidemia
Condition: Fair
Diet: As tolerated
Activity: As tolerated
Driving Restrictions: As prior to admission
Bathing Restrictions: None
Other Services: PT and OT
Referrals:
Luis Hair MD [Active] - in two to three weeks
Additional Discharge Medication Instructions: follow up with primary care doctor in 1 week.
Take aspirin/Plavix for 21 days
Prescriptions:
New
aspirin 81 mg Tablet,Delayed Release (Dr/Ec)
81 mg PO DAILY Qty: 30 0RF
acetaminophen 325 mg Tablet
650 mg PO Q4HPRN PRN (Reason: SANTILLAN, mild pain, or temp >100.4F) Qty: 60 0RF
atorvastatin 80 mg tablet
80 mg PO DAILY Qty: 30 0RF
clopidogrel [Plavix] 75 mg tablet
75 mg PO DAILY Qty: 30 0RF
Continued
losartan 50 mg Tablet
50 mg PO BID
cholecalciferol (vitamin D3) [Vitamin D3] 125 mcg (5,000 unit) Tablet
125 mcg PO DAILY
diphenhydramine HCl [Sleep Aid (diphenhydramine)] 25 mg Capsule
25 mg PO HSPRN PRN (Reason: sleep)
omega 2-vlb-rog-fish oil [Fish Oil] 1,000 (120-180) mg Capsule
1 cap PO DAILY
turmeric 400 mg Capsule
400 mg PO DAILY
omeprazole 20 mg Capsule,Delayed Release(Dr/Ec)
20 mg PO BID
alendronate [Fosamax] 70 mg Tablet
70 mg PO QWEEK Qty: 30 0RF
Discontinued
atorvastatin [Lipitor] 10 mg Tablet
10 mg PO DAILY
furosemide [Lasix] 20 mg Tablet
20 mg PO DAILY
diclofenac sodium [Voltaren] 1 % Gel
0 g TOPICAL QIDPRN PRN (Reason: mild pain)
ibuprofen 600 mg Tablet
600 mg PO Q6H PRN (Reason: joint pain)
acetaminophen 500 mg Tablet
1,000 mg PO Q6H PRN (Reason: joint pain)
Discharge Orders:
Discharge Patient (As Directed); Ordered 02/02/24
Ordered By: Clay Munoz
Discharge Date and Time
Discharge Date/Time: 02/02/24 17:36
Print Language: ALBANIAN
== END 2024-02-02 17:36 | disposition home or self-care (01) | DRG 65 ==
LOC: 4 WEST ACU 13:42
PROVIDERS: Student in an Organized Health Care Education/Training Program; ADMITTING PHYSICIAN Internal Medicine; CONSULT PHYSICIAN Psychiatry & Neurology Neurology; EMERGENCY PHYSICIAN Emergency Medicine
DX: I63.9 Cerebral infarction, unspecified (principal); G81.94 Hemiplegia, unspecified affecting left nondominant side; I10 Essential (primary) hypertension; K21.9 Gastro-esophageal reflux disease without esophagitis; Z66 Do not resuscitate; M06.9 Rheumatoid arthritis, unspecified; M81.0 Age-related osteoporosis without current pathological fracture; E78.00 Pure hypercholesterolemia, unspecified; R47.1 Dysarthria and anarthria; R47.81 Slurred speech; R29.704 NIHSS score 4; R29.810 Facial weakness; R47.01 Aphasia; Z79.899 Other long term (current) drug therapy
CPT/HCPCS: 0042T; 70450; 70496; 70498; 70551; 80053; 80061; 82962; 83036; 84484; 85025; 85027; 85610; 85730; 92523; 93005; 93306; 97162; 99285; Q9967

== ENCOUNTER → 2024-02-17 14:17 | Outpatient (REF) | payer MEDICARE, OTHER, SELFPAY | LOC: HWRAD 14:17 | PROVIDERS: ATTENDING PHYSICIAN Internal Medicine Cardiovascular Disease; REFERRING PHYSICIAN Nurse Practitioner Adult Health | DX: I48.91 Unspecified atrial fibrillation (principal); Z86.73 Personal history of transient ischemic attack (TIA), and cerebral infarction without residual deficits | CPT/HCPCS: 70450 ==

== ENCOUNTER → 2024-02-24 08:27 | Outpatient (REF) | payer MEDICARE, OTHER, SELFPAY | LOC: DHCBC/DCA 08:27 | PROVIDERS: ATTENDING PHYSICIAN Internal Medicine Cardiovascular Disease | DX: I10 Essential (primary) hypertension (principal); R55 Syncope and collapse; R06.09 Other forms of dyspnea | CPT/HCPCS: 78452; 93017; A9500; J2785 ==

== ENCOUNTER → 2025-01-15 12:43 | Outpatient (REF) | payer MEDICARE, OTHER, SELFPAY | LOC: HWRAD 12:43 | PROVIDERS: ATTENDING PHYSICIAN Internal Medicine | DX: M47.816 Spondylosis without myelopathy or radiculopathy, lumbar region (principal) | CPT/HCPCS: 72110 ==

== ENCOUNTER → 2025-03-22 14:09 | Outpatient (REF) | payer MEDICARE, OTHER, SELFPAY | LOC: HWRAD 14:09 | PROVIDERS: ATTENDING PHYSICIAN Obstetrics & Gynecology | DX: N39.3 Stress incontinence (female) (male) (principal) | CPT/HCPCS: 76830; 76856 ==

== ENCOUNTER 2025-03-30 11:23 | Emergency (ER) | payer MEDICARE, OTHER, SELFPAY ==
[2025-03-30 11:29] VITALS: BP 132/57
[2025-03-30 11:34] VITALS: BP 132/57
[2025-03-30 11:50] LABS: Hematocrit 31.9 % (37.0-47.0); Hemoglobin 10.5 g/dL (12.0-16.0); Mean Corp Hgb Conc. 32.9 g/dL (33.0-37.0); Mean Corpuscular Volume 90.6 fL (81.0-99.0); Nucleated Red Blood Cells % 0 %; Platelet Count 196 10^3/uL (130-400); Red Cell Dist. Width 13.0 % (11.5-14.5)
[2025-03-30 12:00] VITALS: BP 113/62
[2025-03-30 12:10] LABS: ALT (SGPT) 25 U/L (0-35); AST (SGOT) 23 U/L (14-36); Albumin 4.6 g/dl (3.5-5.0); Alkaline Phosphatase 75 U/L (38-126); Blood Urea Nitrogen 20 mg/dl (7-17); Calcium 8.9 mg/dl (8.4-10.2); Carbon Dioxide 25 mmol/L (22-30); Chloride 103 mmol/L (98-107); Glucose 126 mg/dl (70-99); Potassium 4.2 mmol/L (3.5-5.1); Sodium 135 mmol/L (135-145); Total Protein 7.6 g/dl (6.3-8.2); eGFR > 60.00
[2025-03-30 12:19] LABS: Troponin I < 0.012 ng/ml
--- NOTE | 2025-03-30 12:59 | ED.GENMED ---
History of Present Illness
General
Chief Complaint: Fainting/Passed Out
Time Seen by Provider: 03/30/25 11:32
History of Present Illness
History of Present Illness:
74-year-old female with history of A-fib on Eliquis, history of CVA, hypertension, hyperlipidemia presenting to the emergency department for syncopal episode. Patient arrives from outpatient gynecology. Patient was having a colposcopy done with
endometrial biopsy. After the procedure, had a witnessed syncopal episode. The procedure had been completed and patient was laid back, subsequently had a witnessed syncopal episode for about 10 seconds, responded to smelling salts. Initially had
a low blood pressure which has since improved. Daughter at bedside does note history of syncope in the past. Patient on arrival denies chest pain, difficulty breathing. Does note some lower abdominal discomfort after procedure. Denies focal
weakness, does note some chronic weakness to the left lower extremity from prior stroke. Denies fever or recent illness or additional acute medical complaint
Past History
Past History
ED Past Medical History: GERD and HTN
ED Past Surgical History: None
Social History
Tobacco: Non-smoker
Alcohol: None
Drug: None
Living: with family
Phy Exam
Physical Exam
Physical Exam:
General: Well-appearing, no clinical signs of dehydration, nontoxic and in no acute distress
HEENT: protecting airway
Neck: appears supple
CV: Normal heart rate, regular rhythm
Resp: No accessory muscle use, no increased work of breathing, lungs clear to auscultation bilaterally
Abd: Soft and non-distended, no tenderness to palpation, normal bowel sounds
Extremities: No deformities, no swelling, no erythema
Neuro: alert, no focal neurologic deficit, weakness to the left lower extremity which is reportedly chronic
: deferred
Rectal: deferred
Psych: Normal affect
Skin: Intact
Course
Orders/Labs/Results
Orders:
Orders
03/30/25 11:30
Electrocardiogram (*1) Urgent
Reason for Study: Syncope
CT Head W/o Iv Contrast Urgent
Comment:
Reason For Exam: syncope
EKG- Treatment ONCE
03/30/25 11:33
Complete Blood Count/With Diff Urgent
Comprehensive Metabolic Panel Urgent
Troponin I Urgent
03/30/25 13:02
Acetaminophen [Tylenol] 650 mg PO NOW STA
Abnormal Lab Results
03/30/25
11:33
RBC 3.52 L 10^6/uL
(4.20-5.40)
Hgb 10.5 L g/dL
(12.0-16.0)
Hct 31.9 L %
(37.0-47.0)
MCHC 32.9 L g/dL
(33.0-37.0)
MPV 11.1 H fL
(7.4-10.4)
Absolute Monos (auto) 0.7 H 10^3/uL
(0.1-0.6)
BUN 20 H mg/dl
(7-17)
Glucose 126 H mg/dl
(70-99)
03/30/25 11:33
03/30/25 11:33
Vital Signs
Initial and Last Documented VS:
Initial Vital Signs
Temp Pulse Resp Pulse Ox
98.8 F 48 20 96
03/30/25 11:27 03/30/25 11:27 03/30/25 11:27 03/30/25 11:27
Last Documented Vital Signs
Temp Pulse Resp BP Pulse Ox
98.8 F 52 16 132/57 97
03/30/25 11:27 03/30/25 12:00 03/30/25 12:00 03/30/25 11:34 03/30/25 13:02
MDM/Problems Addressed
MDM/Problems Addressed:
74-year-old female with history of CVA, A-fib on Eliquis, hypertension, hyperlipidemia presenting after syncopal episode after a procedure. Vital signs are normal.
On exam patient is resting comfortably, no acute distress. Hemodynamically stable. Symptoms appear consistent with vasovagal syncope. Syncopal episode occurred after positional changes from colposcopy and endometrial biopsy. Reassuring
examination with unremarkable cardiac, pulmonary, neurologic exam. EKG obtained on arrival, nonischemic no arrhythmia. Plan for screening laboratory analysis. Daughter is concerned regarding her history of stroke. Plan for screening with CT
brain. Will continue to closely monitor
13:40 -patient's labs are unremarkable. Remains hemodynamically stable. Pending CT brain with ultimate disposition home for suspicion of vasovagal syncope
*Pulse Oximetry
SaO2: 97
Oxygen Mode of Delivery: Room air
Patient hypoxic: no
*EKG
Interpreted by ED Provider?: Yes
EKG Intrepretation Date: 03/30/25
EKG Intrepretation Time: 13:20
Interpretation: normal
Comparison EKG: no changes
Heart Rate: 48
Rate: normal
Rhythm: sinus
[place]: normal axis
Interval: normal interval
QRS Pattern: normal QRS
Ischemia: no ischemia
*Critical Care Note
Total Time (30-74mins, 75-104mins- exclusive of procedures): Not Applicable
ED Attending Note
-
Portions of this chart may have been created with voice recognition software.� Occasional wrong word or��sound alike� substitutions may have occurred due to the inherent limitations of voice recognition software.
Discharge Plan
Departure
Prescriptions:
No Action
losartan 50 mg Tablet
50 mg PO BID
cholecalciferol (vitamin D3) [Vitamin D3] 125 mcg (5,000 unit) Tablet
125 mcg PO DAILY
diphenhydramine HCl [Sleep Aid (diphenhydramine)] 25 mg Capsule
25 mg PO HSPRN PRN (Reason: sleep)
omega 7-auo-stf-fish oil [Fish Oil] 1,000 (120-180) mg Capsule
1 cap PO DAILY
turmeric 400 mg Capsule
400 mg PO DAILY
omeprazole 20 mg Capsule,Delayed Release(Dr/Ec)
20 mg PO BID
aspirin 81 mg Tablet,Delayed Release (Dr/Ec)
81 mg PO DAILY Qty: 30 0RF
acetaminophen 325 mg Tablet
650 mg PO Q4HPRN PRN (Reason: SANTILLAN, mild pain, or temp >100.4F) Qty: 60 0RF
atorvastatin 80 mg tablet
80 mg PO DAILY Qty: 30 0RF
alendronate [Fosamax] 70 mg Tablet
70 mg PO QWEEK Qty: 30 0RF
clopidogrel [Plavix] 75 mg tablet
75 mg PO DAILY Qty: 30 0RF
Referrals:
Lucas Quiroz DO [Family Provider]
Interventions
Interventions:
*General Assessment Last Done: 03/30/25 11:27
ED- Cardiac Assessment Last Done: 03/30/25 12:02
ED- Neurological Assessment Last Done: 03/30/25 12:02
Discharge Date and Time
Print Language: DANISH
[2025-03-30 13:00] VITALS: BP 122/64
[2025-03-30] MEDS: TYLENOL 650 MG PO (13:10)
[2025-03-30 16:21] VITALS: BP 120/70
== END 2025-03-30 16:23 | disposition home or self-care (01) ==
LOC: EMR 11:23
PROVIDERS: EMERGENCY PHYSICIAN Student in an Organized Health Care Education/Training Program; FAMILY PHYSICIAN Family Medicine
DX: R55 Syncope and collapse (principal); I48.91 Unspecified atrial fibrillation; I10 Essential (primary) hypertension; E78.5 Hyperlipidemia, unspecified; I69.354 Hemiplegia and hemiparesis following cerebral infarction affecting left non-dominant side; K21.9 Gastro-esophageal reflux disease without esophagitis; Z79.01 Long term (current) use of anticoagulants; Z79.82 Long term (current) use of aspirin; Z79.02 Long term (current) use of antithrombotics/antiplatelets
CPT/HCPCS: 99284; 70450; 80053; 84484; 85025; 93005; 99283